=== PATIENT | female | born 1940 | race Caucasian/White ===

== ENCOUNTER 2021-09-20 19:11 | Emergency (ER) | payer MEDICARE, MEDICAID, SELFPAY ==
--- NOTE | ~2021-09-20 | CT_ITS ---
EXAMINATION: CT BRAIN W/O DATE: 09/20/2021 19:42 INDICATION: Status post fall. Headache. TECHNIQUE: Computed tomography (CT) of the head was performed without intravenous contrast. The dose- length product was 681.00 mGy-cm. The mA was adjusted according to patient size. Iterative reconstruction technique was employed. COMPARISON: No prior studies for comparison. FINDINGS: Mildly decreased brain parenchymal volume for age. Normal rene-white differentiation. No ac [place] intracranial hemorrhage, infarction, mass or mass effect. There are scattered mild periventricular and subcortical white matter changes, most likely related to small vessel ischemic disease (microangiopathy). No ventriculomegaly or midline shift. Midline sagittal images demonstrate a normal corpus callosum, c raniovertebral junction and sella turcica. Basilar cisterns are patent. Paranasal sinuses and mastoids are pneumatized. No depressed skull fractures. IMPRESSION: 1. No acute intracranial abnormality. 2: Chronic age-related findings. Reviewed, dictated and finalized at location A.
[2021-09-20 19:14] VITALS: BP 123/70; PULSE 88; RESP 18; TEMP 36.6; O2SAT 99
--- NOTE | 2021-09-20 20:24 | ED.FALL ---
HPI - Fall General Chief Complaint: Fall Stated Complaint: fall, head pain Time Seen by Provider: 09/20/21 19:17 Source: EMS Mode of arrival: EMS Limitations: dementia History of Present Illness HPI Narrative: 80-year-old with history of dementia was sent from a shelter with complaints of fall. Patient rolled out of the bed. As per the shelter record patient had a small swelling on the left frontal area. No history of loss of consciousness. Patient only repeats want to go back home to my room she denies any pain or injuries. complaint: fall Onset (ago): hour(s) (1) Fall from: out of bed Fall witnessed: yes, by living facility staff Place fall occurred: shelter/SNF Loss of consciousness: none Prolonged down time: no Symptoms prior to fall: none Location of injury: head Related Data Home Medications Medication Instructions Recorded Confirmed Ativan 09/20/21 Coreg 09/20/21 Seroquel 09/20/21 Xarelto 09/20/21 citalopram 09/20/21 lisinopril 09/20/21 trazodone 09/20/21 Review of Systems Review of Systems: ROS unobtainable: Yes unobtainable due to mental status (dementia) PMFSH Social History Social History (Updated 09/20/21 @ 20:36 by Heriberto Finley MD) Smoking status: Never smoker Alcohol intake: unknown Living arrangements: shelter Exam Narrative: GENERAL: Well-appearing, well-nourished, and in no acute distress. HEAD: Normocephalic, a small frontal hematoma. EYES: PERRLA and EOMI.. NECK: Supple. CHEST: Clear to auscultation. No respiratory distress. HEART: Regular rate and rhythm. No murmur heard. Normal peripheral pulses. ABDOMEN: Soft, nontender, nondistended, normal active bowel sounds. EXTREMITIES: Normal range of motion. No edema. SKIN: Warm, dry, no rash. NEURO: No focal deficits. Alert. Course Course Emergency Course: Patient in no distress. Still continues to stay that I want to go back to my room. Informed her son about her CT findings. He does feel comfortable taking her back to the shelter. Vital Signs Vital signs: Vital Signs Temperature 36.6 C 09/20/21 19:14 Pulse Rate 88 10/27/21 19:14 Respiratory Rate 18 09/20/21 19:14 Blood Pressure 123/70 09/20/21 19:14 Pulse Oximetry 99 09/20/21 19:14 Temperature 36.6 C 09/20/21 19:14 Pulse Rate 88 09/20/21 19:14 Respiratory Rate 18 09/20/21 19:14 Blood Pressure 123/70 09/20/21 19:14 Pulse Oximetry 99 09/20/21 19:14 MDM - Fall Imaging Data Radiologist's impression: ITS Impressions Head CT 09/20/21 19:52 IMPRESSION: 1. No acute intracranial abnormality. 2: Chronic age-related findings. Discharge Plan Discharge Clinical Impression: Minor closed head injury Patient Disposition: [facility] Living Condition: Stable Instructions: Antibiotic Form, Head Injury (ED) Additional Instructions: fall preacutions Prescriptions: No Action Ativan RF: 0 Coreg RF: 0 Seroquel RF: 0 Xarelto RF: 0 citalopram RF: 0 lisinopril RF: 0 trazodone RF: 0 Follow-up/Referrals: PHYSICIAN,PLATEN DRIER OPERATOR [Primary Care Provider] - Jovana Ackerman DO [Physician] - Time of Disposition: 20:25
== END 2021-09-20 20:48 ==
PROVIDERS: Emergency Provider Family Medicine
DX: S09.90XA Unspecified injury of head, initial encounter (principal); W06.XXXA Fall from bed, initial encounter
CPT/HCPCS: 70450; 99284

== ENCOUNTER 2021-11-01 14:52 | Outpatient (CLI) | payer MEDICARE, MEDICAID, SELFPAY ==
--- NOTE | 2021-11-01 | ECHO_ITS ---
Patient Info Name: Donna Romero Age: 81 years : 1940 Gender: Female Ht: 62 in Wt: 140 lbs BSA: 1.68 m2 HR: 69 bpm Heart Rhythm: Sinus Rhythm Technical Quality: Good Exam Date: 11/01/2021 3:43 PM Exam Location: [facility] Patient Status: Outpatient Admit Date: 11/01/2021 BP unable to obtain due to: Non-compliant patient Staff Ordering Physician: PHYSICIAN NOT ON STAFF, NONSTAFF Healthcare Administrative Assistant: Nguyen Prakash RCS Attending Provider: PHYSICIAN NOT ON STAFF, NONSTAFF Exam Type: CA echo doppler color flow Study Info Indications - ASSESS LV EF HX/O PROLONGED QT Complete two-dimensional, color flow and Doppler transthoracic echocardiogram is performed. Summary 1. Complete two-dimensional, color flow and Doppler transthoracic echocardiogram is performed. 2. Left ventricular chamber dimension is normal. 3. Left ventricular systolic function is normal, estimated at >70%. 4. There is mildly increased left ventricular wall thickness. 5. The left ventricular diastolic function is grade I diastolic dysfunction. 6. Left atrial chamber dimension is severely enlarged. 7. Right atrial chamber dimension is mildly enlarged. 8. There is mild mitral valve regurgitation. 9. There is mild tricuspid valve regurgitation. 10. There is mild pulmonic regurgitation. Left Ventricle Left ventricular chamber dimension is normal. Left ventricular systolic function is normal, estimated at >70%. There is mildly increased left ventricular wall thickness. The left ventricular diastolic function is grade I diastolic dysfunction. Right Ventricle Right ventricular chamber dimension is normal. Right ventricular systolic function is normal. Left Atria Left atrial chamber dimension is severely enlarged. Right Atria Right atrial chamber dimension is mildly enlarged. Atrial Septum Intact interatrial septum visualized by color flow imaging. Aortic Valve The aortic valve is trileaflet. There is mild aortic valve sclerosis. There is no aortic valve stenosis. There is trace aortic valve regurgitation. Pulmonic Valve The pulmonic valve is normal. There is no pulmonic valve stenosis. There is mild pulmonic regurgitation. Mitral Valve The mitral valve has calcified annulus. There is no mitral valve stenosis. There is mild mitral valve regurgitation. Tricuspid Valve The tricuspid valve leaflets are normal. There is no significant tricuspid valve stenosis. There is mild tricuspid valve regurgitation. No pulmonary hypertension, estimated pulmonary arterial systolic pressure is 33 mmHg. Pericardium/Pleural The pericardium appears normal. There is trivial pericardial effusion. Inferior Vena Cava Dilated inferior vena cava with >50% collapse upon inspiration consistent with normal right atrial pressure, 10 mmHg. Aorta The aortic root size at the sinus of Valsalva is normal. Left Ventricular Outflow Tract Name Value Normal LVOT 2D LVOT Diameter 2.0 cm LVOT Doppler LVOT Peak Gradient 8 mmHg LVOT Mean Gradient 5 mmHg LVOT VTI
== END 2021-11-01 14:53 | disposition home or self-care (01) ==
LOC: ANHCARD 14:55
DX: I44.7 Left bundle-branch block, unspecified (principal); R94.31 Abnormal electrocardiogram [ECG] [EKG]; I34.0 Nonrheumatic mitral (valve) insufficiency; I36.1 Nonrheumatic tricuspid (valve) insufficiency; I37.1 Nonrheumatic pulmonary valve insufficiency
CPT/HCPCS: 93306

== ENCOUNTER 2022-09-06 15:58 | Emergency (ER) | payer OTHER, SELFPAY ==
[2022-09-06 15:58] VITALS: BP 114/75; PULSE 96; RESP 18; TEMP 36.2; O2SAT 95
[2022-09-06 17:26] VITALS: BP 95/57; PULSE 77; RESP 18; O2SAT 100
--- NOTE | 2022-09-06 18:21 | ED.FEMALEGU ---
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 <REED Simon Last Filed: 09/06/22 19:18> Time Seen by Provider: 09/06/22 16:12 <REED Simon Last Filed: 09/06/22 19:18> Source: family, EMS and old records reviewed <REED Simon Last Filed: 09/06/22 19:18> Mode of arrival: EMS <REED Simon Last Filed: 09/06/22 19:18> Limitations: dementia <REED Simon Last Filed: 09/06/22 19:18> History of Present Illness HPI Narrative: Patient is a 81 y/o female who presents to the ED via EMS with report of a vaginal growth. Patient is a resident of [facility]. She is nonambulatory and A&O X 0 at baseline. She is currently on hospice. She was reportedly sent to the ED today for evaluation of a left labial mass. Per patient's son via phone, he was known about vaginal growth for the last 2 weeks. He states they wanted to have the lesion biopsied today, but that her hospice physician has already stated they will not do surgery even if it is cancer. Son also reported that hospice physician has not identified any pain associated with the genital lesion. Patient unable to voice any complaints at this time per baseline. <Louisa Milton PA-C - Last Filed: 09/06/22 19:18> Related Data Home medications: Home Medications Medication Instructions Recorded Confirmed Ativan 09/20/21 Coreg 09/20/21 Seroquel 09/20/21 Xarelto 09/20/21 citalopram 09/20/21 lisinopril 09/20/21 trazodone 09/20/21 <REED Simon Last Filed: 09/06/22 19:18> Review of Systems Review of Systems: ROS unobtainable: Yes unobtainable due to mental status <Louisa Milton PA-C - Last Filed: 09/06/22 19:18> [facility] Past Medical History Medical History: Medical History (Updated 09/07/22 @ 00:00 by Jazzy No) Dementia HTN (hypertension), benign <Louisa Milton PA-C - Last Filed: 09/06/22 19:18> Surgical History Surgical History: Surgical History (Updated 09/06/22 @ 18:25 by Louisa Milton PA-C) No pertinent past surgical history <Louisa Milton PA-C - Last Filed: 09/06/22 19:18> Social History Social History: Social History Smoking status: Never smoker Alcohol intake: unknown <Louisa Milton PA-C - Last Filed: 09/06/22 19:18> Exam Narrative: GENERAL: Elderly, chronically ill, but no acute distress. Non-toxic. HEAD: Normocephalic, atraumatic. NECK: Supple. No adenopathy, no masses. RESPIRATORY: Airway patent, respirations nonlabored. CARDIOVASCULAR: Regular rate and rhythm without murmurs, rubs, or gallops. Radial pulses 2+ and equal bilaterally. ABDOMINAL: Soft, no appreciable tenderness to palpation, nondistended, no hepatosplenomegaly. Normoactive BS. GENITAL: Large thick, irregular mass/erosion encompassing left labia, approximately size of bar of soap. No active bleeding or drainage. Diffuse atrophic skin changes/whitening to vulvar region extending into inguinal regions bilaterally. MUSCULOSKELETAL: Contractures of BLE. NEURO: A&O X0. Nonverbal. No ataxic movements. <Louisa Milton PA-C - Last Filed: 09/06/22 19:18> Course FREIGHT BRAKEMAN/PA Physician Supervision For this patient encounter, I reviewed the FREIGHT BRAKEMAN or PA documentation, treatment plan, and medical decision making <Leandro Dawn MD - Last Filed: 09/07/22 07:25> Vital Signs Vital signs: Vital Signs Temperature 97.2 F L 09/06/22 15:58 Pulse Rate 96 09/06/22 15:58 Respiratory Rate 18 09/06/22 15:58 Blood Pressure 114/75 09/06/22 15:58 Pulse Oximetry 95 09/06/22 15:58 Temperature 97.2 F L 09/06/22 15:58 Pulse Rate 84 09/06/22 19:37 Respiratory Rate 20 09/06/22 19:3
--- NOTE | 2022-09-06 19:02 | PC.NURSE ---
Report given to FINA Laurent
[2022-09-06 19:37] VITALS: BP 102/63; PULSE 84; RESP 20; O2SAT 98
--- NOTE | 2022-09-06 19:37 | PC.NURSE ---
[facility] contacted for transfer to [facility]. Trip number is [id number]
--- NOTE | 2022-09-06 19:43 | PC.NURSE ---
1932-EMS NOTIFIED OF NEED FOR TRANSFER PER CLUTCH ASSEMBLER. 1941-MULTIPLE ATTEMPTS MADE TO CONTACT FACILITY WITHOUT SUCCESS. CALLED TO NURSING STATIONS 1 AND 2 WITH NO ANSWER. CALLED TO VEGETABLE CUTTER WITH NO ANSWER. CALLED TO [facility]MINISTRATION WITH NO ANSWER.
== END 2022-09-06 20:32 | disposition hospice, home (50) ==
PROVIDERS: Emergency Provider Emergency Medicine; PCP Internal Medicine
DX: N90.9 Noninflammatory disorder of vulva and perineum, unspecified (principal); F03.90 Unspecified dementia, unspecified severity, without behavioral disturbance, psychotic disturbance, mood disturbance, and anxiety; I10 Essential (primary) hypertension
CPT/HCPCS: 99281